=== PATIENT | female | born 1950 | race Caucasian/White ===

== ENCOUNTER 2017-07-14 08:14 | Outpatient (CLI) | payer MEDICARE ==
--- NOTE | 2017-07-16 13:06 | MMO ---
HYMANMAMMO BILATERAL SCREENING MAMMOGRAMS: INDICATIONS: Annual exam. COMPARISON: 05/05/2014 FINDINGS: The interpretation of this examination was assisted with computer aided detection. The breast parenchyma demonstrates scattered fibroglandular elements. There are benign appearing calcifications bilaterally. No suspicious mass, cluster of microcalcification, or area of architectural distortion is evident. IMPRESSION: BI-RADS Category 2: Benign. Recommend routine annual mammographic screen. POS: ANA
== END 2017-07-14 08:15 | disposition home or self-care (01) ==
LOC: SCSMAMMO 08:14
PROVIDERS: ATTEND Physician Assistant
DX: Z12.31 Encounter for screening mammogram for malignant neoplasm of breast (principal)
CPT/HCPCS: 77067

== ENCOUNTER 2018-08-18 08:27 | Outpatient (CLI) | payer MEDICARE ==
--- NOTE | 2018-08-18 09:38 | MMO ---
Bilateral MAMMO Bilat Screen [facility]. CLINICAL HISTORY: Patient is 68 years old and is seen for screening. The patient has no family history of breast cancer. The patient has no personal history of cancer. VIEWS: The views performed were: bilateral craniocaudal and bilateral mediolateral oblique. FILMS COMPARED: The present examination has been compared to prior imaging studies performed at [facility] on 05/05/2014, 05/28/2016 and 07/14/2017, and at [facility] on 05/05/2013. This study has been interpreted with the assistance of computer-aided detection. MAMMOGRAM FINDINGS: There are scattered fibroglandular densities. There are no suspicious masses, suspicious calcifications, or new areas of architectural distortion. IMPRESSION: THERE IS NO MAMMOGRAPHIC EVIDENCE OF MALIGNANCY. A ROUTINE FOLLOW-UP MAMMOGRAM IN 1 YEAR IS RECOMMENDED. ACR BI-RADS Category 1 - Negative MAMMOGRAPHY NOTE: 1. A negative mammogram report should not delay a biopsy if a dominant of clinically suspicious mass is present. 2. Approximately 10% to 15% of breast cancers are not detected by mammography. 3. Adenosis and dense breasts may obscure an underlying neoplasm.
== END 2018-08-18 08:28 | disposition home or self-care (01) ==
LOC: SCSMAMMO 08:27
PROVIDERS: ATTEND Physician Assistant
DX: Z12.31 Encounter for screening mammogram for malignant neoplasm of breast (principal)
CPT/HCPCS: 77067